=== PATIENT | female | born 1960 | race Hispanic/Latino ===

== ENCOUNTER 2018-05-26 12:35 | Emergency (ER) | payer OTHER ==
[2018-05-26 12:37] VITALS: BMI 27.6
[2018-05-26 12:45] VITALS: BP 140/92; RESP 20; TEMP 98.3; O2SAT 98
[2018-05-26 13:08] VITALS: PULSE 100
[2018-05-26] MEDS ORDERED: Amoxicillin-Clav 875-125 mg Tab PO STA (13:18)
[2018-05-26] MEDS ORDERED: Amoxicillin-Clav 875-125 mg Tab PO ONE (13:21)
--- NOTE | 2018-05-26 14:02 | ED PDOC ---
HPI: Skin/Bite Injury Time Seen by Provider: 05/26/18 12:45 Chief Complaint (Nursing): Bite Chief Complaint (Provider): Insect Bite History Per: Patient History/Exam Limitations: no limitations Onset/Duration Of Symptoms: Days Current Symptoms Are (Timing): Still Present Location Of Injury: Right: Forearm Quality Of Symptoms: Other (redness) Additional Complaint(s): 58 year old female presents to ED for an evaluation of insect bite. Patient states last night she noticed "a bite rashmi on her right forearm". Reports she developed redness in that area. Also lives in [place]. Denies going to the [facility], fever or use of antipyretics, chest pain, SOB, palpitations. PMD: Past Medical History Reviewed: Historical Data, Nursing Documentation, Vital Signs Vital Signs: Last Vital Signs Temp 98.3 F 05/26/18 12:41 Pulse 100 H 05/26/18 13:08 Resp 20 05/26/18 12:41 BP 140/92 H 05/26/18 12:41 Pulse Ox 98 05/26/18 15:21 - Medical History PMH: Anxiety, Arthritis (rheumatoid arthritis), Depression, Osteoporosis - Surgical History Surgical History: Tonsillectomy - Family History Family History: States: No Known Family Hx - Social History Current smoker - smoking cessation education provided: Yes (Heavy Smoker > 10 Cigarettes Daily) Alcohol: Other (1 pint of vodka a day) Drugs: Cannabis - Home Medications Home Medications: Ambulatory Orders Medication Instructions Recorded predniSONE [Prednisone] 10 mg PO DAILY #25 tab 06/04/15 Amoxicillin/Clavulanate [Augmentin 1 tab PO BID #20 tab 05/26/18 875 MG-125 MG] - Allergies Allergies/Adverse Reactions: Allergies Allergy/AdvReac Type Severity Reaction Status Date / Time oxytetracycline Allergy RASH Verified 05/26/18 12:40 [From Terramycin] Review of Systems ROS Statement: Except As Marked, All Systems Reviewed And Found Negative Constitutional: Negative for: Fever Skin: Positive for: Other (insect bite on right forearm). Negative for: Rash Psych: Negative for: Suicidal ideation (homicidal ideation) Physical Exam - Reviewed Nursing Documentation Reviewed: Yes Vital Signs Reviewed: Yes - Physical Exam Appears: Positive for: Well, Non-toxic, No Acute Distress Head Exam: Positive for: ATRAUMATIC, NORMAL INSPECTION, NORMOCEPHALIC Skin: Positive for: Normal Color, Warm, Dry Eye Exam: Positive for: Normal appearance Pulses-Radial (L): 2+ Pulses-Radial (R): 2+ Extremity: Positive for: Normal ROM (actively), Other (intact vesicle with surrounding erythema on proximal volar surface of right forearm). Negative for : Deformity (bull's eye shaped lesion) Neurologic/Psych: Positive for: Alert, Oriented (x3) - ECG O2 Sat by Pulse Oximetry: 98 (RA) Pulse Ox Interpretation: Normal - Progress ED Course And Treament: Patient has allergy to Terramycin when she as 10 year old. She believed she had a rash but unsure of anaphylactic shock and she was treated in the hospital. Patient was informed Doxycycline, derivative of Tetracycline is the medication for Lyme Disease Prophylaxis. She was informed she may develop reaction and Doxycyline is in the same family as Terramycin. According to the CDC website, there is no alternative treatment for Lyme Disease Prophylaxis. I spoke with Bienvenido , pharmacist, who states there is no alternative for prophylaxis. Patient refused to take Doxycycline and will wait for blood test results. She was advised to follow-up with Dr. Kaplan in 48 hours but return to the ED if redness worsens or she develops a fever. Medical Decision Making Medical Decision Making: Time: 1303 Initial Impression: insect bite Initial Plan: --Lyme Disease AB(IGG,M),IB --Augmentin 875mg -125mg 1tab PO Scribe Attestation: Documented by Steve Henderson, acting as a scribe for Yanick Joe PA-C. Provider Scribe Attestation: All medical record entries made by the Scribe were at my direction and personally dictated by me. I have reviewed the chart and agree that the record accurately reflects my personal performance of the history, physical exam, medical decision making, and the department course for this patient. I have also personally directed, reviewed, and agree with the discharge instructions and disposition. Disposition - Clinical Impression Clinical Impression: Insect bite - Patient ED Disposition Is Patient to be Admitted: No - Disposition Referrals: [facility] [Outside] Disposition: Routine/Home Disposition Time: 13:15 Condition: STABLE Additional Instructions: YOEL GREWAL, thank you for letting us take care of you today. Your provider was Charlie Lujan MD and you were treated for POSS INSECT BITE. The emergency medical care you received today was directed at your acute symptoms. If you were prescribed any medication, please fill it and take as directed. It may take several days for your symptoms to resolve. Return to the Emergency Department if your symptoms worsen, do not improve, or if you have any other problems. Please contact your doctor or call one of the physicians/clinics you have been referred to that are listed on the Patient Visit Information form that is included in your discharge packet. Bring any paperwork you were given at discharge with you along with any medications you are taking to your follow up visit. Our treatment cannot replace ongoing medical care by a primary care provider outside of the emergency department. Thank you for allowing the [facility] team to be part of your care today. If you had an X-Ray or CT scan: A Radiologist will review the ED reading if any change in treatment is needed we will contact you. If you had a blood, urine, or wound culture: It will take several days for the results, if any change in treatment is needed we will contact you. If you had an STI test: It will take 48 hours for the results. Please call after 1 week if you have not heard back. Prescriptions: Amoxicillin/Clavulanate [Augmentin 875 MG-125 MG] 1 tab PO BID #20 tab Instructions: Insect Bites and Stings (DC) Forms: [facility] (Bengali) Print Language: SAO TOMEAN
== END 2018-05-26 13:31 | disposition home or self-care (01) ==
LOC: H.ER 12:35
DX: S50.861A Insect bite (nonvenomous) of right forearm, initial encounter (principal); F17.210 Nicotine dependence, cigarettes, uncomplicated; Z86.59 Personal history of other mental and behavioral disorders; M06.9 Rheumatoid arthritis, unspecified; M81.0 Age-related osteoporosis without current pathological fracture; W57.XXXA Bitten or stung by nonvenomous insect and other nonvenomous arthropods, initial encounter

== ENCOUNTER 2018-10-23 18:17 | Emergency (ER) | payer OTHER ==
[2018-10-23 18:18] VITALS: BMI 27.6
[2018-10-23 18:27] VITALS: RESP 18; TEMP 98.6
--- NOTE | 2018-10-23 20:38 | ED PDOC ---
Lower Extremity Pain/Injury Time Seen by Provider: 10/23/18 18:44 Chief Complaint (Nursing): Lower Extremity Problem/Injury Chief Complaint (Provider): Lower Extremity Problem/Injury History Per: Patient History/Exam Limitations: no limitations Onset/Duration Of Symptoms: Hrs (today evening) Additional Complaint(s): Neela Escobar is a 58 year old female with a past medical history of Rheum atoid arthritis, degenerative disc disease, who presents to the emergency department complaining of left foot pain after slipping and falling in her kitchen this evening. Patient states she fell with her whole weight on her left foot. She states she had immediate pain and took tramadol at 6pm. Patient states she continues to have pain but denies any ankle pain, numbness, tingling, toe pain, dizziness or palpitations. PMD: No provider Past Medical History Reviewed: Historical Data, Nursing Documentation, Vital Signs Vital Signs: Last Vital Signs Temp 98.6 F 10/23/18 18:24 Pulse 126 H 10/23/18 18:24 Resp 18 10/23/18 18:24 BP 121/72 10/23/18 18:24 Pulse Ox 97 10/23/18 18:24 - Medical History PMH: Anxiety, Arthritis (rheumatoid arthritis), Depression, Osteoporosis - Surgical History Surgical History: Tonsillectomy - Family History Family History: States: Unknown Family Hx - Immunization History Hx Tetanus Toxoid Vaccination: No Hx Influenza Vaccination: No Hx Pneumococcal Vaccination: No - Home Medications Home Medications: Ambulatory Orders Medication Instructions Recorded predniSONE [Prednisone] 10 mg PO DAILY #25 tab 06/04/15 Amoxicillin/Clavulanate [Augmentin 1 tab PO BID #20 tab 05/26/18 875 MG-125 MG] Ibuprofen [Motrin Tab] 600 mg PO Q6 PRN 7 Days tab 10/23/18 - Allergies Allergies/Adverse Reactions: Allergies Allergy/AdvReac Type Severity Reaction Status Date / Time oxytetracycline Allergy RASH Verified 05/26/18 12:40 [From Dagoberto] Review of Systems ROS Statement: Except As Marked, All Systems Reviewed And Found Negative Cardiovascular: Negative for: Palpitations Musculoskeletal: Positive for: Foot Pain. Negative for: Other (ankle pain; toe pain) Neurological: Negative for: Numbness (tingling), Dizziness Physical Exam - Reviewed Nursing Documentation Reviewed: Yes Vital Signs Reviewed: Yes - Physical Exam Appears: Positive for: Uncomfortable Pulses-Dorsalis Pedis (L): 2+ Pulses-Dorsalis Pedis (R): 2+ Extremity: Positive for: Tenderness (tenderness on light palpation on dorsal aspect of right foot near the 2nd and 3rd toes), Capillary Refill (less than 2 seconds ), Other (Left foot has no ecchymosis or edema; ). Negative for: Normal ROM (Decreased ROM with flexion of the left ankle; active ROM but normal passive ROM; can flex and extend toes) - ECG O2 Sat by Pulse Oximetry: 97 (RA) Pulse Ox Interpretation: Normal Medical Decision Making Medical Decision Making: Time: 20:14 Plan: --Toradol 30 mg IM --Left foot x-ray 3 views 2154 Podiatry consultation placed after left foot x-ray showing a minimally displaced fracture of the 4th tarsal bone. Scribe Attestation: Documented by Neri Rodriguez, acting as a scribe for Kathie Ordonez PA-C. Provider Scribe Attestation: All medical record entries made by the Scribe were at my direction and personally dictated by me. I have reviewed the chart and agree that the record accurately reflects my personal performance of the history, physical exam, medical decision making, and the department course for this patient. I have also personally directed, reviewed, and agree with the discharge instructions and disposition. Disposition - Clinical Impression Clinical Impression: Foot fracture, left - Patient ED Disposition Is Patient to be Admitted: No Counseled Patient/Family Regarding: Studies Performed, Diagnosis, Need For Followup - Disposition Referrals: Willian Meyers MD [Staff Provider] - Disposition: Routine/Home Disposition Time: 00:08 Condition: STABLE Additional Instructions: You should avoid bearing weight on your left foot. F/u with Dr. Meyers in 1 week for re-evaluation. Keep leg elevated and ice it. Use Ibuprofen for the pain and to help reduce inflammation. We encourage you to stop smoking. Prescriptions: Ibuprofen [Motrin Tab] 600 mg PO Q6 PRN 7 Days tab PRN Reason: Pain, Moderate (4-7) Instructions: Foot Fracture (DC) Forms: [facility] ([employer]) Print Language: KHMER
--- NOTE | 2018-10-23 23:49 | CP.PCM.CON ---
History of Present Illness - History of Present Illness History of Present Illness: 58 year old female with a PMH of Anxiety, Arthritis (rheumatoid arthritis), Depression, Osteoporosis and Osteoartheritis, seen and evaluated in the ED for left foot pain after slipping and falling in her kitchen this evening. Patient s tates she fell with her whole weight and landed on her left foot. She states she had immediate pain and she couldn't put any weight on her left foot. She rates the pain 10/10 at this moment decreased to 6/10 after receiving a pain medication in the ED. Patient denies any ankle pain, numbness, tingling, toe pain, dizziness or palpitations. She denies any recent F/N/V/C or SOB. She denies any other pedal complaint at this moment. PMH: Anxiety, Arthritis (rheumatoid arthritis), Depression, Osteoporosis and Osteoartheritis. PSH: Tonsillectomy, Right bunionectomy. Allergies: Oxytetracycline Social Hx: Smoker tobacco (1ppd since she was 16), Drink EtOH 3 days/week, Smokes marijuana. Review of Systems - Review of Systems Review of Systems: As per HPI - Constitutional Constitutional: As Per HPI Past Patient History - Past Social History Smoking Status: Heavy Smoker > 10 Cigarettes Daily - CARDIAC Hx Cardiac Disorders: No - PULMONARY Hx Respiratory Disorders: No - RENAL Other/Comment: renal mass. - MUSCULOSKELETAL/RHEUMATOLOGICAL Hx Arthritis: Yes (rheumatoid arthritis) Hx Osteoporosis: Yes - GASTROINTESTINAL Hx Gastrointestinal Disorders: No - GENITOURINARY/GYNECOLOGICAL Other/Comment: renal mass - PSYCHIATRIC Hx Anxiety: Yes Hx Depression: Yes - SURGICAL HISTORY Hx Tonsillectomy: Yes - ANESTHESIA Hx Anesthesia: Yes Meds Home Medications: Home Medication List Medication Instructions Recorded Confirmed Type Ibuprofen [Motrin Tab] 600 mg PO Q6 PRN 7 Days tab 10/23/18 Rx Allergies/Adverse Reactions: Allergies Allergy/AdvReac Type Severity Reaction Status Date / Time oxytetracycline Allergy RASH Verified 05/26/18 12:40 [From Terramycin] Physical Exam - Constitutional Appears: Well, Non-toxic - Head Exam Head Exam: ATRAUMATIC, NORMOCEPHALIC - Extremities Exam Additional comments: B/L Lower Extremity focused exam: VASC: DP/PT 2/4 bilaterally, Cap refill < 3 seconds to all digits, Tem gradient warm to cool from proximal to distal b/l . No edema noted. NEURO: Gross and protective sensations are grossly intact DERM: No open lesions, No edema or erythema noted. No clinical signs of active infection. Scar of bunion surgery on the Right foot MSK: Sever pain on palpation at the left 4th metatarsal head, Pain with ankle and foot range of motion, Muscle power intact 5/5 to all groups on the right side and couldn't be assessed on the left side due to guarding. L HAV deformity. - Neurological Exam Neurological exam: Alert, Oriented x3 - Psychiatric Exam Psychiatric exam: Normal Affect, Normal Mood Results - Vital Signs Recent Vital Signs: Last Vital Signs Temp 98.6 F 10/23/18 18:24 Pulse 126 H 10/23/18 18:24 Resp 18 10/23/18 18:24 BP 121/72 10/23/18 18:24 Pulse Ox 97 10/23/18 21:55 Assessment & Plan - Assessment and Plan (Free Text) Assessment: 58 y/o F patient seen and evaluated in the ED for fracture of the left 4th metatarsal bone. Plan: Patient seen and evaluated for Dr. Meyers Plan discussed with attending Dr. Meyers Chart and vitals were reviewed; Afebrile L foot X-raysMinimally displaced fracture of the 4th metatarsal bone head. Applied Posterior splint. Patient instructed to keep the Splint C/D/I Patient Instructed to remain NWB to LLE and to ambulate using crutches. Patient educated RICE protocol. Patient counselled to quit smoking as it impact the bone healing. Patient demonstrate verbal understanding. Thank you for the consult. Patient to follow up at Dr. Meyers Office. - Date & Time Date: 10/23/18 Time: 23:42
[2018-10-23 23:59] VITALS: BP 119/70; PULSE 91
[2018-10-24 00:09] VITALS: O2SAT 97
--- NOTE | 2018-10-24 08:47 | RAD ---
Date of service: 10/23/2018 PROCEDURE: Left Foot Radiographs. HISTORY: fall onto left foot COMPARISON: None. FINDINGS: BONES: A distal 4th metatarsal metaphyseal complete fracture with without significant displacement. This trace medial angulation deformity. The chronicity of this fracture is indeterminate-acute subacute fracture is a consideration. Where the arrow is denoting patient's area of concern over the 5th toe no z cortical fracture seen. There is here generalized osteopenia noted. No dislocation seen. JOINTS: An os peroneum is present. SOFT TISSUES: Normal. OTHER FINDINGS: None. IMPRESSION: No 5th digit fracture appreciated. There is a acute or subacute appearing distal 4th meta tarsal fracture as detailed above. Other findings as above. Comments: Study marked for PA review .
== END 2018-10-24 | disposition home or self-care (01) ==
LOC: H.ER 18:17
DX: S92.302A Fracture of unspecified metatarsal bone(s), left foot, initial encounter for closed fracture (principal); W01.0XXA Fall on same level from slipping, tripping and stumbling without subsequent striking against object, initial encounter; Y92.000 Kitchen of unspecified non-institutional (private) residence as the place of occurrence of the external cause; F17.210 Nicotine dependence, cigarettes, uncomplicated; F32.9 Major depressive disorder, single episode, unspecified; F41.9 Anxiety disorder, unspecified; M06.9 Rheumatoid arthritis, unspecified; M81.0 Age-related osteoporosis without current pathological fracture
CPT/HCPCS: 29515; 73630; 96372; 99284; J1885